=== PATIENT | female | born 1940 | race Caucasian/White ===

== ENCOUNTER 2020-10-19 19:13 | Emergency (ER) | payer OTHER, MEDICAID ==
[~2020-10-19] VITALS: Ht 160 cm; Wt 65.8 kg
--- NOTE | 2020-10-19 19:26 | NUR ---
PT [facility] BLS. TAKEN TO BED 10
[2020-10-19 19:38] VITALS: BP 109/61
[2020-10-19] MEDS ORDERED: NACL 0.9% 1,000 ML IV ONE (19:45)
--- NOTE | 2020-10-19 20:18 | NUR ---
IV ESTABLISHED, CULTURES AND LANBS COLLECTED. IN AND OUT CATH DONE. SHYAM SWAB COLLECTED. GIVEN TO [employer]
--- NOTE | 2020-10-19 20:37 | NUR ---
PT SENT FROM [facility] WITH C/O LETHARGY AND DECREASED PO INTAKE X 3-4 DAYS. PT HAS A NONPRODUCTIVE COUGH, LUNG SOUNDS CLEAR, 02 SAT 95% ON 2L NC. CURRENTLY AFEBRILE. A/O X 1. ABD SOFT AND NONTENDER. PT INCONTIENT, WEARING A DIAPER. SKIN IN TACT. PT IN A GOWN, BED IN LOWEST POSITION AND SIDERAIL UP FOR PT SAFETY. PT PLACED ON BEDSIDE MONITOR AND REMAIONS ON 02 2L NC. NKA HX - DEMENTIA, ALZHEIMERS, HLD, DRY EYE SYNDROME, FREQUENT DX OF PNEUMONIA
[2020-10-19 20:42] LABS: BASOPHILS % (AUTO) 0.7 % (0.0-2.0); EOSINOPHILS % (AUTO) 0.1 % (0.0-4.0); HEMATOCRIT 49.1 % (36-48); HEMOGLOBIN 16.3 g/dL (12.0-16.0); LYMPHOCYTES # (AUTO) 1.7 K/uL (2.5-16.5); LYMPHOCYTES % (AUTO) 35.1 % (20.5-51.1); MEAN CORPUSCULAR HEMOGLOBIN 29 pg (27-31); MEAN CORPUSCULAR HGB CONC 33 g/dL (33-37); MEAN CORPUSCULAR VOLUME 86.6 fL (80-94); MONOCYTES # (AUTO) 0.4 K/uL (0.8-1.0); NEUTROPHILS # (AUTO) 2.6 K/uL (1.8-7.7); NEUTROPHILS % (AUTO) 55.1 % (42.2-75.2); PLATELET COUNT (AUTO) 268 K/uL (140-450); RED BLOOD CELL COUNT(AUTO) 5.66 MIL/uL (4.20-5.40); RED CELL DISTRIBUTION WIDTH 14.1 % (11.6-13.7); WHITE BLOOD COUNT (AUTO) 4.7 K/uL (4.8-10.8)
[2020-10-19 20:49] LABS: APPEARANCE,URINE CLEAR (CLEAR); BILIRUBIN,URINE NEGATIVE (NEGATIVE); BLOOD, URINE NEGATIVE (NEGATIVE); COLOR,URINE YELLOW (YELLOW); LEUKOCYTE ESTERASE ,URINE NEGATIVE (NEGATIVE); NITRITE, URINE NEGATIVE (NEGATIVE); PH,URINE 5.5 (5.0-9.0); UGLUCOSE NEGATIVE (NEGATIVE)
[2020-10-19 21:00] LABS: ASPARTATE AMINOTRANSFERASE 38 U/L (15-37); CARBON DIOXIDE 24.2 mmol/L (21-32); CHLORIDE 110 mmol/L (98-107); CREATININE 0.9 mg/dL (0.6-1.3); GLUCOSE 124 mg/dL (74-106); POTASSIUM 4.2 mmol/L (3.5-5.1); SODIUM SERUM 145 mmol/L (136-145); TOTAL BILIRUBIN 0.3 mg/dL (0.0-1.0); UREA NITROGEN, BLOOD 32 mg/dL (7-18)
--- NOTE | 2020-10-19 21:34 | NUR ---
SPOKE TO LISA FROM [facility] MD WOULD LIKE TO SEND PT BACK TO FACILITY. PT IS COVID +, HOWEVER ALL LABS AND CHEST X-RAY ARE WITH NORMAL LIMITS, PT AFEBRILE, AND REMAINS TO HAVE 02 SATS RANGING IN THE HIGH 90'S. LISA WANTED ME TO REACH OUT TO PT'S DAUGHTER BEFORE SENDING HER BACK. TRIED CALLING [facility] AT [phone], NO ANSWER, LEFT MESSAGE REGARDING STATUS OF MOM AND ASKED FOR A RETURN CALL.
--- NOTE | 2020-10-19 21:54 | NUR ---
SPOKE WITH PT'S DAUGHTER FELICITY, UPDATED OM MOM'S STATUS. SHE'S OK WITH HER MOM RETURNING TO FACILITY.
--- NOTE | 2020-10-19 21:57 | NUR ---
SPOKE WITH LISA FROM [facility], REPORT GIVEN. WILL ARRANGE FOR TRANSPORT BACK TO FACILITY.
--- NOTE | 2020-10-19 22:00 | NUR ---
TRANSPOT NOT AVAILABLE UNTIL TOMORROW MORNING
--- NOTE | 2020-10-20 00:44 | NUR ---
PT SLEEPING, RESPIRATIONS REGULAR EVEN AND UNLABORED. PT REMAINS ON BEDSIDE MONITOR
[2020-10-20] MEDS ORDERED: NACL 0.9% 1,000 ML IV ONE (01:55)
--- NOTE | 2020-10-20 04:04 | NUR ---
PT'S DIAPER CHANGE, REPSOTIONED FOR COMFORT. REMAINS ON BEDSIDE MONITOR AND 02 2L NC
--- NOTE | 2020-10-20 06:33 | NUR ---
PT SLEEPING, REMAINS ON BEDSIDE MONITOR, O2 AT 2L NC, RESPIRATIONS REGULAR EVEN AND UNLABORED.
--- NOTE | 2020-10-20 07:22 | NUR ---
Pt report given to PAULA PENALOZA. Transfer of care at this time.
--- NOTE | 2020-10-20 10:41 | NUR ---
Patient discharged with v/s stable. Written and verbal after care instructions given and explained. Patient verbalized understanding. Ambulance Transport with by caregiver. All questions addressed prior to discharge. Advised to follow up with PMD.
[2020-10-20 10:43] VITALS: BP 132/79
== END 2020-10-20 10:41 ==
LOC: MED 19:13
DX: U07.1 COVID-19 (principal); R53.83 Other fatigue; R05 Cough; F03.90 Unspecified dementia, unspecified severity, without behavioral disturbance, psychotic disturbance, mood disturbance, and anxiety
CPT/HCPCS: 36415; 71045; 80053; 81003; 83605; 84484; 85025; 87040; 87426; 93005; 96360; 96361; 99285; J7030